=== PATIENT | male | born 1985 | race Caucasian/White ===

== ENCOUNTER 2016-12-12 04:51 | Emergency (ER) | payer MEDICARE, MEDICAID ==
[~2016-12-12] VITALS: Ht 185.4 cm; Wt 100.0 kg
[~2016-12-12 04:51] MED LIST: CARV25TA12 PO; CLON0.2T PO; DIAZ10TA4 PO; LISI40TA PO; LORA1TAB PO; LORA2TAB99 PO; METF500T PO; OLAN10TA3 PO; OXYC5TAB3 PO
[2016-12-12] MEDS ORDERED: LORazepam 1MG TABLET PO ONE (05:30)
[2016-12-12 05:57] LABS: HEMOGLOBIN 14.2 g/dL (13.7-18.0)
[2016-12-12 05:59] LABS: DAU SCREEN DISCLAIMER
[2016-12-12] MEDS ORDERED: LORazepam 1MG TABLET ONE (06:00)
[2016-12-12 06:05] LABS: ASPARTATE AMINO TRANSFERASE 14 U/L (15-37); BLOOD UREA NITROGEN 10 mg/dL (7-18)
[2016-12-12 06:05] LABS: PATH.CAST-FLAG NOT PRESENT; SPERM-FLAG NOT PRESENT; SRC-FLAG NOT PRESENT; XTAL-FLAG NOT PRESENT; YLC-FLAG NOT PRESENT
[2016-12-12 06:11] LABS: ACETAMINOPHEN < 2 mcg/mL (10-30)
[2016-12-12 06:43] VITALS: BP 151/89
== END 2016-12-12 06:54 | disposition home or self-care (01) ==
LOC: ED 06:17
DX: F20.0 Paranoid schizophrenia (principal); E11.65 Type 2 diabetes mellitus with hyperglycemia; I10 Essential (primary) hypertension
CPT/HCPCS: 36415; 80053; 80307; 80329; 81001; 85025; 99284; G0480